=== PATIENT | male | born 1960 | race Caucasian/White ===

== ENCOUNTER 2022-05-11 05:49 | Outpatient (CLI) | payer BC ==
[~2022-05-11] VITALS: Ht 182.9 cm; Wt 107.5 kg
[2022-05-11] MEDS ORDERED: LISI1TAB46 PO (14:46)
[2022-05-11] MEDS ORDERED: PARO20TA5 PO (14:46)
[2022-05-11] MEDS ORDERED: CYCL10TA25 PO (14:46)
[2022-05-11] MEDS ORDERED: OMEG100032 PO (14:46)
[2022-05-11] MEDS ORDERED: FLUT15.845 NS (14:46)
[2022-05-11] MEDS ORDERED: LORA10TA7 PO (14:46)
[2022-05-11] MEDS ORDERED: OMEP20CA18 PO (14:46)
== END 2022-05-11 14:51 | disposition home or self-care (01) ==
LOC: PREOP 05:49
PROVIDERS: ATTEND Surgery
DX: Z01.818 Encounter for other preprocedural examination (principal)

== ENCOUNTER 2022-05-24 10:53 | Day surgery (SDC) | payer BC ==
[~2022-05-24] VITALS: Ht 182.9 cm; Wt 107.5 kg
[~2022-05-24 10:53] MED LIST: CYCL10TA25 PO; FLUT15.845 NS; LISI1TAB46 PO; LORA10TA7 PO; OMEG100032 PO; OMEP20CA18 PO; PARO20TA5 PO
[2022-05-24] MEDS ORDERED: LACTATED RINGERS 1,000 ML IV STA (10:54)
--- NOTE | 2022-05-24 11:06 | Progress Note-Pre Operative ---
Pre-Operative Progress Note Date H&P Reviewed: May 24, 2022 Time H&P Reviewed: 11:05 History & Physical: H&P Reviewed, Patient Examed, No changes noted Pre-Operative Diagnosis: Positive cologuard BRET CROOKS DO May 24, 2022 11:06
[2022-05-24 11:15] VITALS: BP 168/95
[2022-05-24] MEDS ORDERED: PROPOFOL INJECTION 50 ML IV ONE ×2 (13:35→13:49)
[2022-05-24 14:00] VITALS: BP 100/56
--- NOTE | 2022-05-24 14:01 | Discharge Inst-Simple/Standard ---
Discharge Inst-Standard Reconcile Patient Problems Problems Reviewed?: Yes Patient Instructions/Follow Up Plan of Care/Instructions/FU: F/u [address] Hewitt Activity as Tolerated: Yes Discharge Diet: No Restrictions, Regular Diet BRET HEWITT DO May 24, 2022 14:01
--- NOTE | 2022-05-24 14:02 | Progress Note-Post Operative ---
Post-Operative Progess Note Surgeon (s)/Cement Tester Assistant (s) Surgeon BRET CROOKS DO Cement Tester Assistant: n/a Pre-Operative Diagnosis Positive cologuard Post-Operative Diagnosis colon polyps Procedure & Operative Findings Date of Procedure 05/24/22 Procedure Performed/Findings colonoscopy with hot biopsy polypectomy x2 Anesthesia Type per armoring machine operator Estimated Blood Loss Estimated blood loss (mL): none Specimens/Packing Specimens Removed descending colon polyps x2 BRET CROOKS DO May 24, 2022 14:02
--- NOTE | 2022-05-24 14:04 | Anesthesia-General Post-Op ---
MAC Patient Condition Mental Status/LOC: Same as Preop Cardiovascular: Satisfactory Nausea/Vomiting: Absent Respiratory: Satisfactory Pain: Controlled Complications: Absent Post Op Complications Complications None Follow Up Care/Instructions Patient Instructions None needed. Anesthesiology Discharge Order Discharge Order Patient is doing well, no complaints, stable vital signs, no apparent adverse anesthesia problems. No complications reported per nursing. MELISSA GARY CRNA May 24, 2022 14:04
[2022-05-24 14:05] VITALS: BP 111/56
[2022-05-24 14:15] VITALS: BP 111/56
[2022-05-24 14:42] VITALS: BP 111/56
--- NOTE | 2022-05-24 23:19 | OPERATIVE REPORT ---
DATE OF SERVICE: 05/24/2022 PREOPERATIVE DIAGNOSIS: Positive Cologuard. POSTOPERATIVE DIAGNOSIS: Colon polyps. PROCEDURE: Colonoscopy with hot biopsy polypectomy x2. SURGEON: Bret Hewitt DO ANESTHESIA: Per ELECTRICAL CONTROL ASSEMBLER. ESTIMATED BLOOD LOSS: None. COMPLICATIONS: None. SPECIMENS: Descending colon polyps x2. INDICATIONS: The patient is a 61-year-old male, who had positive Cologuard test. He understands risks and benefits of procedure and wished to proceed. Consent was signed and placed in chart. DESCRIPTION OF PROCEDURE: The patient was taken to the endoscopy suite, placed in left lateral recumbent position. Timeout was performed. Digital rectal exam was performed. No palpable polyps, masses or ulcerations. Scope was inserted in the rectum and advanced all the way to the cecum with minimal difficulty. Prep was adequate. Scope was slowly retracted back. No polyps, masses or ulcerations within the cecum, ascending, transverse colon. In the descending colon, 2 polyps were present near each other, which hot biopsy polypectomies were performed. Specimens were obtained. Scope was then slowly retracted back. No polyps, masses or ulcerations in the remainder of the descending and sigmoid colon. Once in the rectum, scope was retroflexed, noting no other pathology. Scope was returned to its normal position, slowly withdrawn until completely removed. The patient tolerated the procedure well without complications, taken to recovery in stable condition. RECOMMENDATIONS: The patient will need repeat colonoscopy in 5 years. Any issues before that, be seen at that time and follow up on pathology in 2 weeks. Job ID: [id number] DocumentID: [id number] Dictated Date: 05/24/2022 20:44:38 Stagecraft Teacher Date: 05/24/2022 23:17:00 Dictated By: BRET HEWITT DO
== END 2022-05-24 15:00 | disposition home or self-care (01) ==
LOC: ENDO 10:53
PROVIDERS: ATTEND Surgery
DX: Z12.11 Encounter for screening for malignant neoplasm of colon (principal); D12.4 Benign neoplasm of descending colon; K21.9 Gastro-esophageal reflux disease without esophagitis